=== PATIENT | female | born 1985 | race Caucasian/White ===

== ENCOUNTER 2017-09-15 04:00 | Inpatient (IN) | payer BC ==
[~2017-09-15] VITALS: Ht 170.2 cm; Wt 61.2 kg
[2017-09-15] VITALS (8 sets, daily range): BP systolic 92–177; BP diastolic 44–105
[2017-09-15] MEDS ORDERED: HYDROCORTISONE SOD SUCCINATE 1MG/ML 1ML INJ SYR(NEO) IV ONE (04:30)
[2017-09-15] MEDS ORDERED: KETOROLAC 15MG/ML VIAL IV ONE (04:30)
[2017-09-15] MEDS ORDERED: SODIUM CHLORIDE 0.9% 1,000 ML IV ONE (04:30)
[2017-09-15] MEDS ORDERED: MORPHINE SULFATE 2 MG/ML CPJ (NOT FOR IM USE) IV ONE (04:30)
[2017-09-15 04:44] LABS: BASOPHILS % 0.2 % (0.0-2.0); EOSINOPHILS % 0.5 % (0.0-5.0); HEMATOCRIT. 40.4 % (36.0-48.0); HEMOGLOBIN. 14.4 g/dL (12.0-16.0); LYMPHOCYTES % 26.3 % (20.0-50.0); MEAN CORPUSCULAR HEMOGLOBIN 30.6 pg (28.0-32.0); MEAN CORPUSCULAR VOLUME 85.6 fL (81.0-99.0); MEAN PLATELET VOLUME 7.7 fl (7.4-10.4); MONOCYTES % 11.3 % (2.0-8.0); NEUTROPHILS % 61.7 % (40.0-76.0); PLATELET 287 x1000/uL (130-400); RED BLOOD CELL COUNT 4.71 mill/uL (4.2-5.4); RED CELL DISTRIBUTION WIDTH 12.7 % (11.6-14.6)
[2017-09-15] MEDS ORDERED: HYDROCORTISONE SOD SUCCINATE 100 MG/2 ML VIAL IV SCH (04:45)
[2017-09-15 05:00] LABS: CARBON DIOXIDE 20 mEq/L (21-32); CHLORIDE 79 mEq/L (98-107)
[2017-09-15] MEDS ORDERED: MORPHINE SULFATE 4 MG/ML CPJ (NOT FOR IM USE) IV ONE (05:30)
[2017-09-15] MEDS ORDERED: LEVOTHYROXINE SODIUM 112MCG TABLET PO ONE (11:45)
[2017-09-15] MEDS ORDERED: PREDNISONE 1MG TABLET PO ONE (11:45)
[2017-09-15] MEDS ORDERED: FLUDROCORTISONE ACETATE 0.1MG TABLET PO SCH (11:45)
[2017-09-15] MEDS ORDERED: LORAZEPAM 2MG/ML CPJ ONE (12:04)
[2017-09-15] MEDS ORDERED: LEVETIRACETAM 1,500 MG in SODIUM CHLORIDE 0.9% 100 ML IV SCH (12:15)
[2017-09-15] MEDS ORDERED: SODIUM CHLORIDE 3% 500ML IV SOLN IV ONE (12:15)
[2017-09-15] MEDS ORDERED: LEVETIRACETAM 1,500 MG in SODIUM CHLORIDE 0.9% 100 ML IV NR (12:30)
[2017-09-15] MEDS ORDERED: LORAZEPAM 2MG/ML CPJ IV PRN (12:30)
[2017-09-15] MEDS ORDERED: LEVETIRACETAM 500 MG in SODIUM CHLORIDE 0.9% 100 ML IV SCH (12:30)
[2017-09-15] MEDS ORDERED: FLUD0.1T PO (12:40)
[2017-09-15] MEDS ORDERED: PRED2.5T4 PO (12:40)
[2017-09-15] MEDS ORDERED: LEVO125T8 PO (12:40)
[2017-09-15] MEDS ORDERED: PROG200C7 MT (12:40)
[2017-09-15] MEDS ORDERED: DOXY1TAB3 PO (12:40)
[2017-09-15] MEDS ORDERED: SODIUM CHLORIDE 3% 500 ML IV NR (13:00)
[2017-09-15 15:07] LABS: CARBON DIOXIDE 21 mEq/L (21-32); CHLORIDE 86 mEq/L (98-107)
[2017-09-15 17:00] LABS: CARBON DIOXIDE 21 mEq/L (21-32); CHLORIDE 88 mEq/L (98-107)
[2017-09-15] MEDS ORDERED: ACETAMINOPHEN 325MG TABLET PO PRN (18:15)
[2017-09-15] MEDS: HYDROCORTISONE SOD SUCCINATE 100 MG/2 ML VIAL IV SCH ×2 (18:18→22:34)
[2017-09-15] MEDS: FLUDROCORTISONE ACETATE 0.1MG TABLET PO SCH (18:18)
[2017-09-15] MEDS: FOLIC ACID 1MG TABLET PO SCH (18:19)
[2017-09-15] MEDS: ACETAMINOPHEN 325MG TABLET PO PRN (18:19)
[2017-09-15 19:10] LABS: T4 FREE 1.86 ng/dL (0.76-1.46)
[2017-09-15] MEDS ORDERED: SODIUM CHL 0.9% + KCL 20MEQ/L 1,000 ML IV SCH (20:00)
[2017-09-15 20:43] LABS: CHLORIDE 90 mEq/L (98-107)
[2017-09-15 20:47] LABS: CARBON DIOXIDE 17 mEq/L (21-32)
[2017-09-15] MEDS: LEVOTHYROXINE SODIUM 100 MCG/ VIAL IV SCH (20:52)
[2017-09-15 21:51] LABS: CLARITY URINE CLEAR (CLEAR); COLOR URINE YELLOW (YELLOW); KETONES URINE 2+ (NEGATIVE); LEUKOCYTE ESTERASE URINE NEGATIVE (NEGATIVE); NITRITE URINE NEGATIVE (NEGATIVE); OCCULT BLOOD URINE NEGATIVE (NEGATIVE); PROTEIN URINE NEGATIVE (NEGATIVE); SPECIFIC GRAVITY URINE 1.012 (1.005-1.030); UROBILINOGEN URINE 0.2 E.U./dL (0.2-1.0)
[2017-09-15] MEDS: LEVETIRACETAM 500MG PREMIX 100 ML IV SCH (22:31)
[2017-09-15 23:18] LABS: CARBON DIOXIDE 18 mEq/L (21-32); CHLORIDE 95 mEq/L (98-107)
[2017-09-16] VITALS (17 sets, daily range): BP systolic 85–106; BP diastolic 46–71
[2017-09-16 04:10] LABS: CARBON DIOXIDE 18 mEq/L (21-32); CHLORIDE 97 mEq/L (98-107)
[2017-09-16] MEDS: ACETAMINOPHEN 325MG TABLET PO PRN ×2 (04:44→21:29)
[2017-09-16] MEDS: HYDROCORTISONE SOD SUCCINATE 100 MG/2 ML VIAL IV SCH ×3 (05:53→21:23)
[2017-09-16] MEDS: FOLIC ACID 1MG TABLET PO SCH (08:29)
[2017-09-16] MEDS: FLUDROCORTISONE ACETATE 0.1MG TABLET PO SCH (08:29)
[2017-09-16] MEDS: THIAMINE HCL 100MG TABLET PO SCH (08:30)
[2017-09-16 08:50] LABS: CARBON DIOXIDE 20 mEq/L (21-32); CHLORIDE 95 mEq/L (98-107)
[2017-09-16] MEDS: LEVETIRACETAM 500MG PREMIX 100 ML IV SCH (10:04)
[2017-09-16] MEDS: LEVOTHYROXINE SODIUM 100 MCG/ VIAL IV SCH (11:11)
[2017-09-16 13:20] LABS: CARBON DIOXIDE 23 mEq/L (21-32); CHLORIDE 94 mEq/L (98-107)
[2017-09-16] MEDS ORDERED: IBUPROFEN 400MG TABLET PO PRN (13:30)
[2017-09-16] MEDS ORDERED: ACETAMINOPHEN WITH CODEINE 300/30MG TABLET PO PRN (13:30)
[2017-09-16] MEDS ORDERED: ACETAMINOPHEN 500MG TABLET PO PRN (15:00)
[2017-09-17] VITALS (8 sets, daily range): BP systolic 85–99; BP diastolic 55–83
[2017-09-17] MEDS ORDERED: LEVOTHYROXINE SODIUM 125MCG TABLET PO SCH (06:50)
[2017-09-17 07:36] LABS: CARBON DIOXIDE 24 mEq/L (21-32); PHOSPHORUS 2.9 mg/dL (2.5-4.9)
[2017-09-17] MEDS ORDERED: PREDNISONE 10MG TABLET PO SCH (08:30)
[2017-09-17 08:42] LABS: BASOPHILS % 0.2 % (0.0-2.0); HEMATOCRIT. 33.9 % (36.0-48.0); HEMOGLOBIN. 11.6 g/dL (12.0-16.0); MEAN CORPUSCULAR HEMOGLOBIN 30.4 pg (28.0-32.0); MEAN CORPUSCULAR VOLUME 88.7 fL (81.0-99.0); MONOCYTES % 5.7 % (2.0-8.0); NEUTROPHILS % 85.1 % (40.0-76.0); PLATELET 287 x1000/uL (130-400); RED BLOOD CELL COUNT 3.82 mill/uL (4.2-5.4); RED CELL DISTRIBUTION WIDTH 12.6 % (11.6-14.6)
[2017-09-17] MEDS ORDERED: FLUDROCORTISONE ACETATE 0.1MG TABLET PO SCH (09:00)
[2017-09-17] MEDS: THIAMINE HCL 100MG TABLET PO SCH (09:26)
[2017-09-17] MEDS: FOLIC ACID 1MG TABLET PO SCH (09:26)
[2017-09-17 09:29] LABS: CHLORIDE 96 mEq/L (98-107)
[2017-09-17] MEDS ORDERED: POTASSIUM CHLORIDE 20MEQ TABLET SR PO SCH (11:15)
[2017-09-17] MEDS ORDERED: PREDNISONE 5MG TABLET PO SCH (18:00)
== END 2017-09-17 12:15 | disposition home or self-care (01) | DRG 781 ==
LOC: ER 04:00 → 6WST 06:02 → ENRESERV 07:39 → 3WST 13:01
PROVIDERS: ADMIT Internal Medicine; ATTEND Internal Medicine
DX: O99.281 Endocrine, nutritional and metabolic diseases complicating pregnancy, first trimester (principal); E27.2 Addisonian crisis; E87.1 Hypo-osmolality and hyponatremia; O26.891 Other specified pregnancy related conditions, first trimester; E83.51 Hypocalcemia; O62.1 Secondary uterine inertia; E03.9 Hypothyroidism, unspecified; E87.6 Hypokalemia; G40.409 Other generalized epilepsy and epileptic syndromes, not intractable, without status epilepticus; G43.909 Migraine, unspecified, not intractable, without status migrainosus; Z3A.01 Less than 8 weeks gestation of pregnancy
CPT/HCPCS: 36415; 70450; 71010; 76801; 80048; 80053; 81003; 82306; 82533; 82962; 83735; 83930; 84100; 84295; 84300; 84439; 84443; 84550; 85025; 87040; 87086; 93005; 96361; 96374; 96375; 96376; 97162; 97165; 99291; J1720; J1885; J1953; J2060; J2270; J3480; J3490; J7030; J7040; J7050; J7512